=== PATIENT | female | born 1945 | race Caucasian/White ===

== ENCOUNTER → 2017-05-03 | Outpatient (CLI) | payer MEDICARE, OTHER ==
[~2017-05-03] MED LIST: ACET325 PO; ATOR10 PO; ATOR20 PO; Bactrim Ds Tab1 EACH PO; CALCA500CH PO; CALCAVITD PO; CENTRUM SILVER1 EAC2 PO; CEPH500 PO; CHOL10002 PO; CIPR500 PO; CLEARLAX119 GM PO; Caltrate-600 W1 EACH PO; Colace250 MG PO; Coumadin5 MG PO; ENOX60I SC; FURO20 PO; Fruity C250 MG PO; HYDCOR2.5C PR; HYDMETSO BOTHEYES; HYDR1TAB94 PO; Juven1 EACH PO; LAVAP17G PO; LEVO750 PO; LEVOFLOXACIN500 MG PO; Magnesium Citr296 ML PO; Milk Of Ma800 MG/5 M PO; Miralax17 GM PO; OSEL75CA PO; PANT40 PO; PERIDEX15 ML MM; POTA8 PO; Percocet 5-3251 EACH PO; Senna8.6 MG PO; Stool Softener100 MG PO; TRAM50 PO; Tylenol325 MG PO; Vitamin D2000 UNIT PO; [UNRECOGNIZED DRUG - REMARK] INH
[2017-05-03 12:57] LABS: Appearance, Urine Cloudy (Clear); Bilirubin, Urine Neg (Neg); Blood, Urine 5+ (Neg); Color, Urine Yellow (P-Yellow); Glucose Qualitative, Urine Neg (Neg); Ketones, Urine Neg (Neg); Leukocyte Esterase, Urine 3+ (Neg); Nitrite, Urine Neg (Neg); Protein, Urine 1+ (Neg); Specific Gravity, Urine 1.015 (1.003-1.022); Urobilinogen, Urine NORM (Normal)
[2017-05-03 13:18] LABS: Red Blood Cells, Urine 25-50 /hpf (0-2)
[2017-05-03 13:19] LABS: Bacteria Few /hpf; Squamous Epithelial Cells Few /hpf (Few); White Blood Cells, Urine 50-100 /hpf (0-5)
== END | disposition home or self-care (01) ==
LOC: EDSTATUS 11:08 → LAB RH 12:46 → LAB UVN 12:46
PROVIDERS: Internal Medicine Nephrology
DX: N18.2 Chronic kidney disease, stage 2 (mild) (principal); D63.1 Anemia in chronic kidney disease
CPT/HCPCS: 81001; 87077; 87086; 87186

== ENCOUNTER → 2017-05-05 | Outpatient (CLI) | payer MEDICARE, OTHER ==
[2017-05-05 12:51] LABS: Protein, Urine Quantitative 74.6 mg/dL (0.0-11.9)
== END | disposition home or self-care (01) ==
LOC: EDSTATUS 11:13 → LAB RH 12:26
PROVIDERS: Internal Medicine Nephrology
DX: N18.2 Chronic kidney disease, stage 2 (mild) (principal); D63.1 Anemia in chronic kidney disease
CPT/HCPCS: 81050; 82043; 84156

== ENCOUNTER → 2017-05-12 | Outpatient (CLI) | payer MEDICARE, OTHER ==
[2017-05-12 09:08] LABS: Source, Urine Catheter
[2017-05-12 11:15] LABS: Bilirubin, Urine Neg (Neg); Blood, Urine Neg (Neg); Glucose Qualitative, Urine Neg (Neg); Ketones, Urine Neg (Neg); Leukocyte Esterase, Urine 1+ (Neg); Nitrite, Urine Neg (Neg); Protein, Urine Neg (Neg); Specific Gravity, Urine 1.015 (1.003-1.022); Urobilinogen, Urine NORM (Normal)
[2017-05-12 11:38] LABS: Appearance, Urine Hazy (Clear); Color, Urine Yellow (P-Yellow)
[2017-05-12 11:40] LABS: Amorphous Light (0-Heavy); Bacteria Few /hpf; Calcium Oxalate Crystals Few /hpf; Squamous Epithelial Cells Few /hpf (Few)
== END | disposition home or self-care (01) ==
LOC: LAB RH 09:07 → EDSTATUS 11:16
PROVIDERS: Internal Medicine Nephrology
DX: N39.0 Urinary tract infection, site not specified (principal)
CPT/HCPCS: 81001; 87086

== ENCOUNTER 2017-08-17 16:09 | Emergency (ER) | payer MEDICARE, OTHER ==
[~2017-08-17] VITALS: Ht 165.1 cm; Wt 68.0 kg
[2017-08-17 16:38] LABS: BASOPHILS ABSOLUTE AUTO 0.04 K/mm3 (0.00-0.23); BASOPHILS PERCENT AUTO 1 % (0-2); EOSINOPHILS ABSOLUTE AUTO 0.24 K/mm3 (0.00-0.68); EOSINOPHILS PERCENT AUTO 4 % (0-6); Hematocrit 44.3 % (33.0-51.0); Hemoglobin 14.7 g/dL (11.5-16.0); IMMATURE GRAN ABSOLUTE AUTO 0.02 K/mm3 (0.00-0.10); IMMATURE GRAN PERCENT AUTO 0 % (0-1); LYMPHOCYTES ABSOLUTE AUTO 1.66 K/mm3 (0.84-5.20); LYMPHOCYTES PERCENT AUTO 26 % (21-46); MONOCYTES PERCENT AUTO 8 % (4-13); Mean Corpuscular HGB 31.1 pg (26.0-34.0); Mean Corpuscular HGB Conc 33.2 g/dL (31.5-36.5); Mean Corpuscular Volume 94 fL (80-100); Mean Platelet Volume 9.4 fL (9.1-12.4); NEUTROPHILS ABSOLUTE AUTO 3.97 K/mm3 (1.96-9.15); NEUTROPHILS PERCENT AUTO 62 % (41-73); Platelet Count 259 K/mm3 (150-400); RDW Coefficient Variation 14.7 % (11.7-14.2); RDW Standard Deviation 51.4 fL (35.1-46.3); Red Blood Cell Count 4.73 M/mm3 (3.80-5.20); White Blood Cell Count 6.43 K/mm3 (4.00-11.30)
[2017-08-17 16:53] LABS: Alanine Aminotransfer (ALT/SGP 37 U/L (12-78); Albumin/Globulin Ratio 0.7 (0.8-1.8); Alk Phos 104 U/L (50-136); Anion Gap 8 mmol/L (6-16); Aspartate Aminotrans (AST/SGOT 33 U/L (12-37); Bilirubin, Total 0.3 mg/dL (0.1-1.0); Blood Urea Nitrogen 14 mg/dL (8-24); Bun/Creatinine Ratio 19.1 (12.0-20.0); CO2, Blood 29 mmol/L (21-32); Calcium, Blood 8.7 mg/dL (8.5-10.1); Chloride, Blood 107 mmol/L (98-108); Creatinine, Blood 0.73 mg/dL (0.40-1.00); Globulin, Blood 4.4 g/dL (2.2-4.0); Glomerular Filtration Rate >60 (60-); Glucose, Blood 110 mg/dL (70-99); Potassium, Blood 3.8 mmol/L (3.5-5.5); Sodium, Blood 144 mmol/L (136-145); Total Protein, Blood 7.4 g/dL (6.4-8.2)
== END 2017-08-17 18:43 | disposition home or self-care (01) ==
LOC: ER 16:09
DX: R55 Syncope and collapse (principal); Z88.0 Allergy status to penicillin; Z88.8 Allergy status to other drugs, medicaments and biological substances; Z79.899 Other long term (current) drug therapy; I10 Essential (primary) hypertension
CPT/HCPCS: 80053; 85025; 93005; 93010; 99283

== ENCOUNTER → 2017-09-01 | Outpatient (CLI) | payer MEDICARE, OTHER | LOC: LAB SHORT 17:07 → LAB 17:07 | DX: Z48.817 Encounter for surgical aftercare following surgery on the skin and subcutaneous tissue (principal); L08.9 Local infection of the skin and subcutaneous tissue, unspecified | CPT/HCPCS: 87070; 87075; 87147; 87186; 87205 ==

== ENCOUNTER 2018-04-01 20:27 | Emergency (ER) | payer MEDICARE, OTHER ==
[~2018-04-01] VITALS: Ht 165.1 cm; Wt 61.2 kg
[2018-04-01 20:55] LABS: Calcium, Ionized (POC) 1.24 mmol/L (1.10-1.46); Chloride (POC) 103 mmol/L (98-108); Creatinine (POC) 0.7 mg/dL (0.6-1.0); Glucose (ISTAT POC) 117 mg/dL (70-99); Hemoglobin (POC) 15.6 g/dL (12.0-16.0); Potassium (POC) 4.1 mmol/L (3.5-5.5); Sodium (POC) 140 mmol/L (135-148); Total CO2 (POC) 29 mmol/L (21-32)
== END 2018-04-01 22:03 | disposition home or self-care (01) ==
LOC: ER 20:27
PROVIDERS: Emergency Medicine
DX: R55 Syncope and collapse (principal); I10 Essential (primary) hypertension; D64.9 Anemia, unspecified
CPT/HCPCS: 80047; 85014; 93005; 93010; 99284-25

== ENCOUNTER 2019-01-10 15:15 | Inpatient (IN) | payer MEDICARE, OTHER ==
[~2019-01-10] VITALS: Ht 152.4 cm; Wt 45.6 kg
[~2019-01-10 15:15] MED LIST changes: +ARTIFICIAL TEAR15 M2 BOTHEYES; -HYDMETSO BOTHEYES
[2019-01-10] MEDS ORDERED: ASPI325 PO (15:35)
[2019-01-10] MEDS ORDERED: CITA20 PO (15:35)
[2019-01-10] MEDS ORDERED: POTA8 PO (15:36)
[2019-01-10 15:45] LABS: BASOPHILS ABSOLUTE AUTO 0.04 K/mm3 (0.00-0.23); BASOPHILS PERCENT AUTO 0 % (0-2); EOSINOPHILS PERCENT AUTO 1 % (0-6); Hemoglobin 19.9 g/dL (11.5-16.0); IMMATURE GRAN ABSOLUTE AUTO 0.02 K/mm3 (0.00-0.10); IMMATURE GRAN PERCENT AUTO 0 % (0-1); LYMPHOCYTES PERCENT AUTO 33 % (21-46); MONOCYTES ABSOLUTE AUTO 0.87 K/mm3 (0.16-1.47); MONOCYTES PERCENT AUTO 10 % (4-13); Mean Corpuscular HGB Conc 29.7 g/dL (31.5-36.5); Mean Corpuscular Volume 104 fL (80-100); Mean Platelet Volume 11.8 fL (9.1-12.4); NEUTROPHILS ABSOLUTE AUTO 5.07 K/mm3 (1.96-9.15); NEUTROPHILS PERCENT AUTO 56 % (41-73); Platelet Count 171 K/mm3 (150-400); RDW Standard Deviation 58.4 fL (35.1-46.3); Red Blood Cell Count 6.41 M/mm3 (3.80-5.20)
[2019-01-10 15:51] LABS: Hematocrit 66.9 % (33.0-51.0)
[2019-01-10 15:51] LABS: Source, Urine Clean Catch
[2019-01-10 15:55] LABS: Appearance, Urine Hazy (Clear); Bilirubin, Urine Neg (Neg); Blood, Urine 5+ (Neg); Color, Urine Yellow (P-Yellow); Glucose Qualitative, Urine Neg (Neg); Ketones, Urine Neg (Neg); Leukocyte Esterase, Urine 3+ (Neg); Nitrite, Urine Neg (Neg); Protein, Urine 2+ (Neg); Urobilinogen, Urine NORM (Normal)
[2019-01-10 16:07] LABS: Troponin I 0.04 ng/mL (0.000-0.040)
[2019-01-10 16:09] LABS: Albumin, Blood 3.4 g/dL (3.4-5.0); Albumin/Globulin Ratio 0.7 (0.8-1.8); Bilirubin, Total 0.6 mg/dL (0.1-1.0); Bun/Creatinine Ratio 73.2 (12.0-20.0); Calcium, Blood 12.4 mg/dL (8.5-10.1); Creatinine, Blood 1.23 mg/dL (0.40-1.00); Globulin, Blood 5.1 g/dL (2.2-4.0); Potassium, Blood 4.5 mmol/L (3.5-5.5); Total Protein, Blood 8.5 g/dL (6.4-8.2)
[2019-01-10 16:16] LABS: Bacteria Many /hpf; Red Blood Cells, Urine 25-50 /hpf (0-2); Squamous Epithelial Cells Few /hpf (Few)
[2019-01-10 16:17] LABS: Amorphous Light (0-Heavy)
--- NOTE | 2019-01-10 18:19 | NUR ---
PT ARRIVED TO ROOM FROM ER. TRANSFERRED TO BED VIA SLIDER SHEET AND ASSIST X4. PT APEARS TO BE MENTALLY DELAYED OR POSS HX CVA?? SPEECH VERY SLOW AND DIFFICULT TO UNDERSTAND. TEETH PROTRUDING AND SOME ARE MISSING. RT HAND CONTRACTED, BLE'S IMMOBILE. PT HAS DIFFICULTY FOLLOWING COMMANDS. CAN STATE HER NAME AND THAT SHE IS IN [facility] BUT THAT'S IT. SHE ARRIVED WITH NS INFUSING AT 150CC/HR INTO 20G IV IN LAC. PT DOES NOT KEEP ARM STRAIGHT AN IV OCCLUDES OFTEN. MEDS GIVEN ORDERED. PT ASKED FOR "BLUE" AND MOTIONED THAT IT WAS SOMETHING THAT WENT TO HER FACE. SHE WAS GIVEN AN EMESIS BAG AND ZOFRAN. ADMISSION ASSESSMENT COMPLETE. WILL NEED TO REVIEW [facility] RECORDS FOR HISTORY PT IS A POOR COMMUNICATOR AND COGNITIVELY IMPAIRED. BED ALARM IN PLACE. TV ON GESTURED. PT IN [facility] FOR NURSING OBSV. WILL CONT TO MONITOR, CHART ANY CHANGES AND REPORT TO HAND SPRING REPAIRER RN.
[2019-01-10 21:37] LABS: Bun/Creatinine Ratio 71.5 (12.0-20.0); Calcium, Blood 11.5 mg/dL (8.5-10.1); Creatinine, Blood 1.23 mg/dL (0.40-1.00); Potassium, Blood 3.4 mmol/L (3.5-5.5)
[2019-01-11 03:48] LABS: BASOPHILS ABSOLUTE AUTO 0.02 K/mm3 (0.00-0.23); BASOPHILS PERCENT AUTO 0 % (0-2); EOSINOPHILS ABSOLUTE AUTO 0.09 K/mm3 (0.00-0.68); EOSINOPHILS PERCENT AUTO 1 % (0-6); IMMATURE GRAN ABSOLUTE AUTO 0.03 K/mm3 (0.00-0.10); IMMATURE GRAN PERCENT AUTO 0 % (0-1); LYMPHOCYTES ABSOLUTE AUTO 2.22 K/mm3 (0.84-5.20); LYMPHOCYTES PERCENT AUTO 24 % (21-46); MONOCYTES ABSOLUTE AUTO 0.96 K/mm3 (0.16-1.47); MONOCYTES PERCENT AUTO 10 % (4-13); Mean Corpuscular HGB 30.5 pg (26.0-34.0); Mean Corpuscular HGB Conc 28.4 g/dL (31.5-36.5); Mean Platelet Volume 11.6 fL (9.1-12.4); NEUTROPHILS ABSOLUTE AUTO 5.89 K/mm3 (1.96-9.15); NEUTROPHILS PERCENT AUTO 64 % (41-73); Platelet Count 125 K/mm3 (150-400); RDW Coefficient Variation 14.7 % (11.7-14.2); RDW Standard Deviation 59.5 fL (35.1-46.3); Red Blood Cell Count 5.24 M/mm3 (3.80-5.20); White Blood Cell Count 9.21 K/mm3 (4.00-11.30)
[2019-01-11 03:51] LABS: Hematocrit 56.4 % (33.0-51.0); Mean Corpuscular Volume 108 fL (80-100)
[2019-01-11 04:35] LABS: Albumin, Blood 2.6 g/dL (3.4-5.0); Albumin/Globulin Ratio 0.7 (0.8-1.8); Bilirubin, Total 0.5 mg/dL (0.1-1.0); Bun/Creatinine Ratio 70.3 (12.0-20.0); Calcium, Blood 9.8 mg/dL (8.5-10.1); Creatinine, Blood 1.18 mg/dL (0.40-1.00); Globulin, Blood 3.6 g/dL (2.2-4.0); Potassium, Blood 4.6 mmol/L (3.5-5.5)
[2019-01-11 04:36] LABS: Total Protein, Blood 6.2 g/dL (6.4-8.2)
--- NOTE | 2019-01-11 05:34 | NUR ---
PROVIDER CONTACTED PT WITH CRITICALLY HIGH SODIUM THIS AM OF 174. DR DIAZ CONTACTED AND IS LOOKING AT ALL LAB RESULTS AND WILL INPUT ORDERS IF NECESSARY.
--- NOTE | 2019-01-11 06:54 | NUR ---
SHIFT SUMMARY PT HAS REMAINED ORIENTED TO SELF, TOWN AND AND SURROUNDINGS THROUGHOUT THE NIGHT. PT IS DISORIENTED TO CURRENT DATE/TIME. PT REMAINS VERY SLOW TO RESPOND, BUT IS ABLE TO ANSWER QUESTIONS AND MAKE NEEDS KNOWN. VSS. HAS BEEN VERY COOPERATIVE WITH CARE. PT REMAINS INCONTINENT OF URINE THROUGHOUT THE NIGHT, ATTENDS IN PLACE. O2 SATS >90% ON RA. CARDIAC RHTYHM REMAINS IN SINUS WITH A RATE IN THE 90s. POWERGLIDE ATTEMPTED X2 WITHOUT SUCCESS. D 5% FLUIDS RUNNING @ 75 ML/HR. NO OTHER CHANGES NOTED FROM INITIAL ASSESSMENT. WILL CONTINUE TO MONITOR AND REPORT TO ONCOMING SHIFT RN. BED IN LOW POSITION, CALL LIGHT IN REACH. BED ALARM SET FOR SAFETY.
[2019-01-11 07:56] LABS: Calcium, Blood 9.7 mg/dL (8.5-10.1); Creatinine, Blood 1.25 mg/dL (0.40-1.00)
--- NOTE | 2019-01-11 08:30 | NUR ---
ASSUMED CARE OF PATIENT AT 0700, WITH REPORT FROM NURSE BRUNA. PATIENT IS LYING IN BED EYES CLOSED, ROUSABLE BY VOICE, LETHARGIC TO RESPOND WITH APPARENT DEVELOPMENTAL DELAY, IS REPORTED TO BE HER BASELINE. PATIENT IS ORIENTED TO SELF AND TOWN, BUT NOT TIME NOR EXACT PLACE. ORIENTING PATIENT TO CALL LIGHT IS PRACTICAL AT EACH INTERVENTION. PATIENT C/O PAIN TO RIGHT EYE, WHICH IS SOOTHED BY COOL DAMP WASHCLOTH, OTHERWISE NO ISSUES OTHER THAN VERBAL WORDLESS SOUND WITH SC MEDS, AND WITH PRESSURE CUFF INFLATED. PATIENT IS ABLE TO MAKE HER WISHES KNOWN, AND ANSWERS SIMPLE QUESTIONS ONE BY ONE GIVEN ENOUGH TIME. WILL CONTINUE TO MONITOR. BED LOCKED AND LOW, BED ALARM ON, CALL LIGHT W/IN REACH.
[2019-01-11 12:11] LABS: Bun/Creatinine Ratio 65.3 (12.0-20.0); Calcium, Blood 9.2 mg/dL (8.5-10.1); Creatinine, Blood 1.21 mg/dL (0.40-1.00)
[2019-01-11 18:40] LABS: Bun/Creatinine Ratio 64.1 (12.0-20.0); Calcium, Blood 8.5 mg/dL (8.5-10.1); Creatinine, Blood 1.03 mg/dL (0.40-1.00); Potassium, Blood 3.4 mmol/L (3.5-5.5)
--- NOTE | 2019-01-11 19:18 | NUR ---
SPOKE WITH PHYSICIAN DR. PALMER ABOUT NA LEVEL OF 159. NEW ORDERS TO CHANGE RATE ON D5 INFUSION TO 100MLS/H.
--- NOTE | 2019-01-11 19:26 | NUR ---
SHIFT SUMMARY TREATED AND MEDICATED PATIENT PER EMAR ORDER AND UNIT PROTOCOL, PATIENT SLEPT MOST OF THE DAY, APPEARING MORE COGNIZANT AND ALERT AT THE END OF THE SHIFT THAN AT THE BEGINNING. PATIENT WAS RECEPTIVE TO RE-ORIENTATION TO UNIT AND LOCATION, AND ACCEPTING OF ALL INTERVENTIONS WELL HER NPO ORDER, ALTHOUGH SHE ASKED FOR SOMETHING TO EAT A NUMBER OF TIMES. VSS STABLE THROUGHOUT THE SHIFT, PT ABOVE 92% O2 SATURATION ON ROOM AIR. CARE AND REPORT GIVEN TO ONCOMING SHIFT AT 1900, PATIENT AWAKE IN BED, BED LOCKED AND LOW, CALL LIGHT W/IN REACH.
[2019-01-12 00:17] LABS: Anion Gap 4 mmol/L (6-16); Blood Urea Nitrogen 57 mg/dL (8-24); Bun/Creatinine Ratio 62.1 (12.0-20.0); CO2, Blood 35 mmol/L (21-32); Calcium, Blood 8.1 mg/dL (8.5-10.1); Chloride, Blood 120 mmol/L (98-108); Creatinine, Blood 0.92 mg/dL (0.40-1.00); Glomerular Filtration Rate >60 (60-); Glucose, Blood 122 mg/dL (70-99); Potassium, Blood 3.2 mmol/L (3.5-5.5); Sodium, Blood 159 mmol/L (136-145)
[2019-01-12 06:21] LABS: Anion Gap 2 mmol/L (6-16); Blood Urea Nitrogen 45 mg/dL (8-24); Bun/Creatinine Ratio 56.2 (12.0-20.0); CO2, Blood 34 mmol/L (21-32); Calcium, Blood 8.1 mg/dL (8.5-10.1); Chloride, Blood 118 mmol/L (98-108); Glomerular Filtration Rate >60 (60-); Glucose, Blood 124 mg/dL (70-99); Potassium, Blood 3.1 mmol/L (3.5-5.5); Sodium, Blood 154 mmol/L (136-145)
--- NOTE | 2019-01-12 07:28 | NUR ---
SHIFT SUMMARY PT HAS REMAINED AOX3 THROUGHOUT SHIFT. ORIENTED TO SELF, SURROUNDINGS, AND FOLLOWING DIRECTIONS. DISORIENTED TO CURRENT DATE. VSS. PLEASANT AND COOPERATIVE WITH CARE. PT HAS SLEPT THROUGHOUT MUCH OF THE NIGHT. REQUIRES MOTIVATION TO FULLY WAKE UP AND PARTICIPATE IN CARE AND ASSESSMENT, BUT IS ABLE TO DO SO. D5% CONTINUES TO INFUSE @ 100 ML/HR WITH IMPROVING SODIUM LEVELS. PT TURNED Q2 AND ATTEMPTED TO ASSIST WITH TURNS OCCASINALLY THROUGHOUT THE NIGHT. O2 SATS HAVE REMAINED >90% ON RA. NO OTHER CHANGES NOTED FROM INITIAL ASSESSMENT. WILL CONTINUE TO MONITOR AND REPORT TO ONCOMING SHIFT RN. BED IN LOW POSITION, CALL LIGHT IN REACH. BED ALARM SET FOR SAFETY.
[2019-01-12 12:25] LABS: Anion Gap 4 mmol/L (6-16); Blood Urea Nitrogen 38 mg/dL (8-24); Bun/Creatinine Ratio 52.1 (12.0-20.0); CO2, Blood 32 mmol/L (21-32); Calcium, Blood 7.5 mg/dL (8.5-10.1); Chloride, Blood 115 mmol/L (98-108); Creatinine, Blood 0.73 mg/dL (0.40-1.00); Glomerular Filtration Rate >60 (60-); Glucose, Blood 142 mg/dL (70-99); Sodium, Blood 151 mmol/L (136-145)
--- NOTE | 2019-01-12 16:34 | NUR ---
UPDATE PT ALERT TO SELF, FOLLOWING DIRECTIONS, AND PLACE. PT SLOW TO RESPOND. VS STABLE. O2 SATS REMAIN ABOVE 90% ON RA. PT DENIES ANY PAIN. PT INCONTINENT OF BOWEL AND BLADDER. PT REPOSITIONED Q2H. D5 INFUSING PER ORDERS ALONG WITH KCL. REPORT CALLED TO MEDICAL FLOOR ALFA THAYER. PT TAKEN UP BY BED.
--- NOTE | 2019-01-12 19:50 | NUR ---
SHIFT SUMMARY- PT ALERT AND ORIENTED, BEDBOUND AT BASELINE, PT HAS CONTRACTURES ON THE RIGHT. DENIES NEED FOR PAIN MEDICATION. PT IS INCONTINENT OF STOOL AND URINE. PT HAS IV POTASSIUM RUNNING IN THE PG ABX STARTED AT SHIFT CHANGE INTO THE SECOND LINE. PT BP WAS HYPOTENSIVE ON ARRIVAL TO THE UNIT. PT IS ASYMTOMATIC OF IT AT THIS TIME. BEDSIDE REPORT COMPLETED WITH NIGHT ALFA HAMILTON.
[2019-01-13 05:07] LABS: BASOPHILS ABSOLUTE AUTO 0.01 K/mm3 (0.00-0.23); BASOPHILS PERCENT AUTO 0 % (0-2); EOSINOPHILS ABSOLUTE AUTO 0.17 K/mm3 (0.00-0.68); EOSINOPHILS PERCENT AUTO 3 % (0-6); Hematocrit 34.7 % (33.0-51.0); Hemoglobin 10.6 g/dL (11.5-16.0); IMMATURE GRAN ABSOLUTE AUTO 0.03 K/mm3 (0.00-0.10); IMMATURE GRAN PERCENT AUTO 1 % (0-1); LYMPHOCYTES ABSOLUTE AUTO 2.35 K/mm3 (0.84-5.20); LYMPHOCYTES PERCENT AUTO 38 % (21-46); MONOCYTES ABSOLUTE AUTO 0.44 K/mm3 (0.16-1.47); MONOCYTES PERCENT AUTO 7 % (4-13); Mean Corpuscular HGB 30.8 pg (26.0-34.0); Mean Corpuscular HGB Conc 30.5 g/dL (31.5-36.5); Mean Platelet Volume 12.2 fL (9.1-12.4); NEUTROPHILS ABSOLUTE AUTO 3.22 K/mm3 (1.96-9.15); NEUTROPHILS PERCENT AUTO 52 % (41-73); Platelet Count 78 K/mm3 (150-400); RDW Coefficient Variation 13.2 % (11.7-14.2); RDW Standard Deviation 49.1 fL (35.1-46.3); Red Blood Cell Count 3.44 M/mm3 (3.80-5.20); White Blood Cell Count 6.22 K/mm3 (4.00-11.30)
[2019-01-13 05:22] LABS: Mean Corpuscular Volume 101 fL (80-100)
[2019-01-13 05:30] LABS: Anion Gap 4 mmol/L (6-16); Blood Urea Nitrogen 19 mg/dL (8-24); Bun/Creatinine Ratio 30.4 (12.0-20.0); CO2, Blood 28 mmol/L (21-32); Calcium, Blood 7.3 mg/dL (8.5-10.1); Chloride, Blood 116 mmol/L (98-108); Creatinine, Blood 0.63 mg/dL (0.40-1.00); Glomerular Filtration Rate >60 (60-); Glucose, Blood 144 mg/dL (70-99); Potassium, Blood 3.4 mmol/L (3.5-5.5); Sodium, Blood 148 mmol/L (136-145)
--- NOTE | 2019-01-13 06:36 | NUR ---
PT 73 years old admitted 01/10/19 with hypernatremia and continues on D5 at150 ml hr via lt upper arm powerglide. PT also has IV which was used for merrum to treat ESBL UTI. PT incontinent of urine multiple times. Aspiration risk on pureed diet nectar thick liquids per spoon. no oral intake this shift. PT able to verbalize but has difficlty with memory and has rt UE contractured hand weak rt le
--- NOTE | 2019-01-13 16:00 | NUR ---
CALLED DR PALMER- SPOKE ABOUT THE PT SWOLLEN BRUISED LEFT ARM, VAS STUDY NEGATIVE FOR DVT HOWEVER SWELLING AND BRUISING HAVE GOTTEN WORSE. ALSO PT MOST RECENT BP WAS 80/44. PT TIRED BUT OTHERWISE ASYMPTOMATIC. BP BEING DONE ON THE LEFT LEG D/T EDEMA ON THE RIGHT ARM AND IV ACCESS IN THE LEFT. NO NEW ORDERS AT THIS TIME WILL CTM AND RECHECK VITALS IN APPROXIMATELY 1 HOUR.
--- NOTE | 2019-01-13 18:49 | NUR ---
SHIFT SUMMARY- OTHER THAN PREVIOUSLY NOTED ISSUES PT HAS HAD NO ACUTE CHANGES. IVF DC'D. PT LAST SBP WAS 115.
--- NOTE | 2019-01-14 05:28 | NUR ---
PT continues the recieve IV abx to treat ESB> Saline locked IV fluids per MD. BP variable hypotensive at times. Zero oral intake this shift very high aspiration risk and does not want to sit up for oral. Denies pain or acute distress. PT has rt upper arm doppler study negative for DVT. RT UE has 3 attempts at PICC line placement. LT UE power glide difficult to draw AM labs but after multiple flushes and pressure to cannula did get am lab draw.
[2019-01-14 05:49] LABS: BASOPHILS ABSOLUTE AUTO 0.01 K/mm3 (0.00-0.23); BASOPHILS PERCENT AUTO 0 % (0-2); EOSINOPHILS ABSOLUTE AUTO 0.17 K/mm3 (0.00-0.68); EOSINOPHILS PERCENT AUTO 4 % (0-6); Hematocrit 33.1 % (33.0-51.0); Hemoglobin 10.4 g/dL (11.5-16.0); IMMATURE GRAN ABSOLUTE AUTO 0.04 K/mm3 (0.00-0.10); IMMATURE GRAN PERCENT AUTO 1 % (0-1); LYMPHOCYTES ABSOLUTE AUTO 1.19 K/mm3 (0.84-5.20); LYMPHOCYTES PERCENT AUTO 26 % (21-46); MONOCYTES ABSOLUTE AUTO 0.37 K/mm3 (0.16-1.47); MONOCYTES PERCENT AUTO 8 % (4-13); Mean Corpuscular HGB 31.5 pg (26.0-34.0); Mean Corpuscular HGB Conc 31.4 g/dL (31.5-36.5); Mean Corpuscular Volume 100 fL (80-100); Mean Platelet Volume 12.4 fL (9.1-12.4); NEUTROPHILS ABSOLUTE AUTO 2.88 K/mm3 (1.96-9.15); NEUTROPHILS PERCENT AUTO 62 % (41-73); Platelet Count 76 K/mm3 (150-400); RDW Coefficient Variation 13.2 % (11.7-14.2); RDW Standard Deviation 49.1 fL (35.1-46.3); White Blood Cell Count 4.66 K/mm3 (4.00-11.30)
[2019-01-14 06:11] LABS: Anion Gap 4 mmol/L (6-16); Blood Urea Nitrogen 14 mg/dL (8-24); Bun/Creatinine Ratio 19.4 (12.0-20.0); CO2, Blood 25 mmol/L (21-32); Calcium, Blood 7.4 mg/dL (8.5-10.1); Chloride, Blood 119 mmol/L (98-108); Creatinine, Blood 0.72 mg/dL (0.40-1.00); Glomerular Filtration Rate >60 (60-); Glucose, Blood 87 mg/dL (70-99); Potassium, Blood 3.7 mmol/L (3.5-5.5); Sodium, Blood 148 mmol/L (136-145)
--- NOTE | 2019-01-14 19:20 | NUR ---
PATIENT ABLE TO ANSWER QUESTIONS APPROPRIATELY. VSS, ON RA. SPEECH GARBLED AND DIFFICULT TO UNDERSTAND. BEDBOUND AT BASELINE, Q2 TURNS. MERREM IN ORDERED TO TREAT UTI. 20G IV TO L AC AND POWERGLIDE TO L UPPER ARM. PLAN IS TO D/C BACK TO [facility] ONCE STABLE. PATIENT IS A FEEDER, PUREE DIET WITH NECTAR THICK LIQUIDS. INCONTINENT OF BOWEL/BLADDER.
--- NOTE | 2019-01-15 04:24 | NUR ---
Shift Summary Patient slept well overnight. Assisted to reposition q2h and changed soiled briefs. Provided oral care with repositioning. Encouraged nectar-thick po fluids.
--- NOTE | 2019-01-15 18:30 | NUR ---
DISCHARGE PATIENT DISCHARGED BACK TO [facility]. PATIENT TRANSFERED VIA STRETCHER. IV'S REMOVED WITHOUT DIFFICULTY. BELONGINGS WITH PATIENT. REPORT CALLED TO [facility] NURSE. PACKET WITH DOCK BUILDER.
== END 2019-01-15 18:15 | DRG 641 ==
LOC: ER 15:15 → ICUW 16:44 → PCU 17:14 → MEDS 01-12 16:22
PROVIDERS: Emergency Medicine; Internal Medicine; ADMIT Hospitalist
DX: E87.0 Hyperosmolality and hypernatremia (principal); N17.9 Acute kidney failure, unspecified; N39.0 Urinary tract infection, site not specified; M41.9 Scoliosis, unspecified; I10 Essential (primary) hypertension; M81.0 Age-related osteoporosis without current pathological fracture; Z79.82 Long term (current) use of aspirin; Z74.01 Bed confinement status; I89.0 Lymphedema, not elsewhere classified; E86.0 Dehydration; D64.9 Anemia, unspecified
CPT/HCPCS: 36415; 71046; 80048; 80053; 81001; 84484; 85025; 87077; 87081; 87086; 87186; 92526; 92610; 93005; 93010; 93971; 99285-25; J0696; J1644; J1650; J2185; J2405; J3480; J7030; J7050; J7060; J7070; P9612

== ENCOUNTER → 2019-01-29 | Outpatient (CLI) | payer MEDICARE, OTHER ==
[~2019-01-29] MED LIST changes: +ASPI325 PO; +CITA20 PO
[2019-01-29 14:15] LABS: Stool Occult Bld Immuno 1 Negative (NEGATIVE)
== END | disposition home or self-care (01) ==
LOC: LAB 08:36 → LAB SHORT 08:36
PROVIDERS: Nurse Practitioner Family
DX: Z12.11 Encounter for screening for malignant neoplasm of colon (principal); Z12.12 Encounter for screening for malignant neoplasm of rectum
CPT/HCPCS: G0328

== ENCOUNTER → 2019-03-27 | Outpatient (CLI) | payer MEDICARE, OTHER ==
[2019-03-27 11:44] LABS: BASOPHILS ABSOLUTE AUTO 0.05 K/mm3 (0.00-0.23); BASOPHILS PERCENT AUTO 0 % (0-2); EOSINOPHILS ABSOLUTE AUTO 0.03 K/mm3 (0.00-0.68); EOSINOPHILS PERCENT AUTO 0 % (0-6); Hematocrit 44.4 % (33.0-51.0); IMMATURE GRAN ABSOLUTE AUTO 0.07 K/mm3 (0.00-0.10); IMMATURE GRAN PERCENT AUTO 1 % (0-1); LYMPHOCYTES ABSOLUTE AUTO 1.02 K/mm3 (0.84-5.20); LYMPHOCYTES PERCENT AUTO 7 % (21-46); MONOCYTES ABSOLUTE AUTO 0.94 K/mm3 (0.16-1.47); MONOCYTES PERCENT AUTO 6 % (4-13); Mean Corpuscular HGB 30.7 pg (26.0-34.0); Mean Corpuscular HGB Conc 31.5 g/dL (31.5-36.5); Mean Platelet Volume 9.6 fL (9.1-12.4); NEUTROPHILS ABSOLUTE AUTO 13.03 K/mm3 (1.96-9.15); NEUTROPHILS PERCENT AUTO 86 % (41-73); Platelet Count 357 K/mm3 (150-400); RDW Coefficient Variation 14.6 % (11.7-14.2); RDW Standard Deviation 52.9 fL (35.1-46.3); Red Blood Cell Count 4.56 M/mm3 (3.80-5.20); White Blood Cell Count 15.14 K/mm3 (4.00-11.30)
[2019-03-27 12:06] LABS: Albumin, Blood 2.8 g/dL (3.4-5.0); Albumin/Globulin Ratio 0.6 (0.8-1.8); Bilirubin, Total 0.5 mg/dL (0.1-1.0); Bun/Creatinine Ratio 21.4 (12.0-20.0); Calcium, Blood 8.9 mg/dL (8.5-10.1); Creatinine, Blood 1.17 mg/dL (0.40-1.00); Total Protein, Blood 7.8 g/dL (6.4-8.2)
[2019-03-27 12:07] LABS: Mean Corpuscular Volume 97 fL (80-100)
== END | disposition home or self-care (01) ==
LOC: EDSTATUS 11:05 → LAB RH 11:37
PROVIDERS: Family Medicine
DX: E87.8 Other disorders of electrolyte and fluid balance, not elsewhere classified (principal)
CPT/HCPCS: 80053; 85025

== ENCOUNTER → 2019-03-31 | Outpatient (CLI) | payer MEDICARE, OTHER ==
[2019-03-31 07:20] LABS: Hematocrit 34.7 % (33.0-51.0); Hemoglobin 10.8 g/dL (11.5-16.0); Mean Corpuscular HGB 30.3 pg (26.0-34.0); Mean Corpuscular HGB Conc 31.1 g/dL (31.5-36.5); Mean Corpuscular Volume 97 fL (80-100); Mean Platelet Volume 9.8 fL (9.1-12.4); Platelet Count 254 K/mm3 (150-400); RDW Coefficient Variation 14.2 % (11.7-14.2); RDW Standard Deviation 50.4 fL (35.1-46.3); Red Blood Cell Count 3.57 M/mm3 (3.80-5.20); White Blood Cell Count 6.33 K/mm3 (4.00-11.30)
[2019-03-31 07:50] LABS: Alanine Aminotransfer (ALT/SGP 11 U/L (12-78); Albumin/Globulin Ratio 0.5 (0.8-1.8); Alk Phos 67 U/L (50-136); Anion Gap 6 mmol/L (6-16); Aspartate Aminotrans (AST/SGOT 12 U/L (12-37); Bilirubin, Total 0.2 mg/dL (0.1-1.0); Blood Urea Nitrogen 14 mg/dL (8-24); Bun/Creatinine Ratio 26.5 (12.0-20.0); CO2, Blood 30 mmol/L (21-32); Calcium, Blood 8.8 mg/dL (8.5-10.1); Chloride, Blood 107 mmol/L (98-108); Creatinine, Blood 0.53 mg/dL (0.40-1.00); Glomerular Filtration Rate >60 (60-); Glucose, Blood 86 mg/dL (70-99); Potassium, Blood 3.9 mmol/L (3.5-5.5); Sodium, Blood 143 mmol/L (136-145)
== END | disposition home or self-care (01) ==
LOC: LAB RH 07:12 → EDSTATUS 11:06
PROVIDERS: Nurse Practitioner Gerontology
DX: E87.8 Other disorders of electrolyte and fluid balance, not elsewhere classified (principal)
CPT/HCPCS: 80053; 85027

== ENCOUNTER → 2019-04-04 | Outpatient (CLI) | payer MEDICARE, OTHER ==
[2019-04-04 13:05] LABS: Albumin, Blood 2.3 g/dL (3.4-5.0); Anion Gap 1 mmol/L (6-16); Blood Urea Nitrogen 16 mg/dL (8-24); Bun/Creatinine Ratio 38.1 (12.0-20.0); CO2, Blood 29 mmol/L (21-32); Calcium, Blood 8.2 mg/dL (8.5-10.1); Chloride, Blood 105 mmol/L (98-108); Creatinine, Blood 0.42 mg/dL (0.40-1.00); Glomerular Filtration Rate >60 (60-); Glucose, Blood 87 mg/dL (70-99); Phosphorus, Blood 2.6 mg/dL (2.5-4.9); Potassium, Blood 4.2 mmol/L (3.5-5.5); Sodium, Blood 135 mmol/L (136-145)
== END | disposition home or self-care (01) ==
LOC: LAB RH 08:04 → EDSTATUS 11:07
PROVIDERS: Internal Medicine Nephrology
DX: N18.3 Chronic kidney disease, stage 3 (moderate) (principal); D63.1 Anemia in chronic kidney disease; N25.81 Secondary hyperparathyroidism of renal origin; E55.9 Vitamin D deficiency, unspecified
CPT/HCPCS: 36415; 80069; 82306; 83970; 85018

== ENCOUNTER → 2019-06-18 | Outpatient (CLI) | payer MEDICARE, OTHER ==
[2019-06-18 11:58] LABS: Anion Gap 4 mmol/L (6-16); Blood Urea Nitrogen 17 mg/dL (8-24); Bun/Creatinine Ratio 23.7 (12.0-20.0); CO2, Blood 34 mmol/L (21-32); Calcium, Blood 9.5 mg/dL (8.5-10.1); Chloride, Blood 106 mmol/L (98-108); Creatinine, Blood 0.72 mg/dL (0.40-1.00); Glomerular Filtration Rate >60 (60-); Glucose, Blood 93 mg/dL (70-99); Potassium, Blood 4.2 mmol/L (3.5-5.5); Sodium, Blood 144 mmol/L (136-145)
== END | disposition home or self-care (01) ==
LOC: EDSTATUS 09:56 → LAB RH 11:46
PROVIDERS: Family Medicine
DX: N18.2 Chronic kidney disease, stage 2 (mild) (principal); D63.1 Anemia in chronic kidney disease
CPT/HCPCS: 80048

== ENCOUNTER → 2019-06-24 | Outpatient (CLI) | payer MEDICARE, OTHER ==
[~2019-06-24] MED LIST changes: +MIRALAX17 GM PO
[2019-06-24 12:19] LABS: BASOPHILS ABSOLUTE AUTO 0.06 K/mm3 (0.00-0.23); BASOPHILS PERCENT AUTO 1 % (0-2); EOSINOPHILS ABSOLUTE AUTO 0.04 K/mm3 (0.00-0.68); EOSINOPHILS PERCENT AUTO 0 % (0-6); IMMATURE GRAN ABSOLUTE AUTO 0.05 K/mm3 (0.00-0.10); IMMATURE GRAN PERCENT AUTO 0 % (0-1); LYMPHOCYTES ABSOLUTE AUTO 1.11 K/mm3 (0.84-5.20); LYMPHOCYTES PERCENT AUTO 9 % (21-46); MONOCYTES ABSOLUTE AUTO 1.21 K/mm3 (0.16-1.47); MONOCYTES PERCENT AUTO 10 % (4-13); Mean Corpuscular HGB 29.9 pg (26.0-34.0); Mean Corpuscular HGB Conc 30.8 g/dL (31.5-36.5); Mean Corpuscular Volume 97 fL (80-100); Mean Platelet Volume 10.1 fL (9.1-12.4); NEUTROPHILS ABSOLUTE AUTO 9.31 K/mm3 (1.96-9.15); NEUTROPHILS PERCENT AUTO 79 % (41-73); Platelet Count 270 K/mm3 (150-400); RDW Coefficient Variation 16.8 % (11.7-14.2); RDW Standard Deviation 60.8 fL (35.1-46.3); Red Blood Cell Count 4.02 M/mm3 (3.80-5.20); White Blood Cell Count 11.78 K/mm3 (4.00-11.30)
== END | disposition home or self-care (01) ==
LOC: EDSTATUS 11:39 → LAB RH 12:11
PROVIDERS: Family Medicine
DX: N18.2 Chronic kidney disease, stage 2 (mild) (principal); I82.409 Acute embolism and thrombosis of unspecified deep veins of unspecified lower extremity
CPT/HCPCS: 85025

== ENCOUNTER 2019-06-25 23:21 | Emergency (ER) | payer MEDICARE, OTHER ==
[~2019-06-25] VITALS: Ht 152.4 cm; Wt 59.0 kg
[~2019-06-25 23:21] MED LIST changes: -MIRALAX17 GM PO
[2019-06-26 00:47] LABS: BASOPHILS ABSOLUTE AUTO 0.11 K/mm3 (0.00-0.23); BASOPHILS PERCENT AUTO 0 % (0-2); Hematocrit 37.8 % (33.0-51.0); Hemoglobin 11.5 g/dL (11.5-16.0); LYMPHOCYTES ABSOLUTE AUTO 1.03 K/mm3 (0.84-5.20); LYMPHOCYTES PERCENT AUTO 4 % (21-46); MONOCYTES ABSOLUTE AUTO 1.13 K/mm3 (0.16-1.47); MONOCYTES PERCENT AUTO 4 % (4-13); Mean Corpuscular HGB 29.9 pg (26.0-34.0); Mean Corpuscular HGB Conc 30.4 g/dL (31.5-36.5); Mean Corpuscular Volume 98 fL (80-100); Mean Platelet Volume 9.9 fL (9.1-12.4); Platelet Count 203 K/mm3 (150-400); RDW Coefficient Variation 17.5 % (11.7-14.2); RDW Standard Deviation 63.7 fL (35.1-46.3); Red Blood Cell Count 3.85 M/mm3 (3.80-5.20); White Blood Cell Count 26.58 K/mm3 (4.00-11.30)
[2019-06-26 00:48] LABS: EOSINOPHILS PERCENT AUTO 0 % (0-6); IMMATURE GRAN ABSOLUTE AUTO 0.76 K/mm3 (0.00-0.10); IMMATURE GRAN PERCENT AUTO 3 % (0-1); NEUTROPHILS ABSOLUTE AUTO 23.55 K/mm3 (1.96-9.15); NEUTROPHILS PERCENT AUTO 89 % (41-73)
[2019-06-26 01:04] LABS: Albumin, Blood 1.8 g/dL (3.4-5.0); Albumin/Globulin Ratio 0.4 (0.8-1.8); Bilirubin, Total 0.3 mg/dL (0.1-1.0); Bun/Creatinine Ratio 18.2 (12.0-20.0); Calcium, Blood 8.9 mg/dL (8.5-10.1); Creatinine, Blood 1.98 mg/dL (0.40-1.00); Globulin, Blood 4.8 g/dL (2.2-4.0); Potassium, Blood 4.2 mmol/L (3.5-5.5); Total Protein, Blood 6.6 g/dL (6.4-8.2)
[2019-06-26 01:05] LABS: BAND PERCENT MAN 29 % (0-8); BASOPHILS PERCENT MAN 0 % (0-2); EOSINOPHILS PERCENT MAN 0 % (0-6); LYMPHOCYTES ABSOLUTE MAN 1.06 K/mm3 (0.84-5.20); LYMPHOCYTES PERCENT MAN 4 % (21-46); METAMYELOCYTE ABSOLUTE MAN 4.25 K/mm3 (0.00-0.00); METAMYELOCYTE PERCENT MAN 16 % (0-0); MONOCYTES ABSOLUTE MAN 0.53 K/mm3 (0.16-1.47); MONOCYTES PERCENT MAN 2 % (4-13); NEUTROPHILS ABSOLUTE MAN 20.73 K/mm3 (1.96-9.15); SEG NEUTROPHILS PERCENT MAN 49 % (41-73); TOTAL CELLS COUNTED 100
[2019-06-26] MEDS ORDERED: MIRALAX17 GM PO (02:59)
[2019-06-26 03:18] LABS: Adenovirus F 40/41 Not Detected (NOT DETECT); Astrovirus Not Detected (NOT DETECT); Campylobacter Sp Not Detected (NOT DETECT); Cryptosporidium Not Detected (NOT DETECT); Cyclospora Cayetanensis Not Detected (NOT DETECT); E. Coli O157 Not Detected (NOT DETECT); Entamoeba Histolytica Not Detected (NOT DETECT); Enteroaggregative E. coli-EAEC Not Detected (NOT DETECT); Enteropathogenic E. coli-EPEC Not Detected (NOT DETECT); Enterotoxigenic E. coli-ETEC Not Detected (NOT DETECT); Giardia Lamblia Not Detected (NOT DETECT); Norovirus GI/GII Not Detected (NOT DETECT); Plesiomonas Shigelloides Not Detected (NOT DETECT); Rotavirus A Not Detected (NOT DETECT); Salmonella Sp Not Detected (NOT DETECT); Sapovirus Not Detected (NOT DETECT); Shiga Toxin-prod E. coli-STEC Not Detected (NOT DETECT); Shigella/Enteroin E. coli-EIEC Not Detected (NOT DETECT); Vibrio Cholerae Not Detected (NOT DETECT); Vibrio Sp Not Detected (NOT DETECT); Yersinia Enterocolitica Not Detected (NOT DETECT)
== END 2019-06-26 05:02 | disposition short-term general hospital (02) ==
LOC: ER 23:21 → MEDS 06-26 03:17 → ER 06-26 03:17
PROVIDERS: Emergency Medicine
DX: A41.9 Sepsis, unspecified organism (principal); N13.2 Hydronephrosis with renal and ureteral calculous obstruction; I10 Essential (primary) hypertension; Z88.0 Allergy status to penicillin; Z88.6 Allergy status to analgesic agent; Z79.899 Other long term (current) drug therapy; Z79.82 Long term (current) use of aspirin
CPT/HCPCS: 0097U; 36415; 74176; 80053; 83605; 85025; 93005; 93010; 96361; 96365; 96367; 99285; J0696; J2185; J7030

== ENCOUNTER → 2019-06-25 | Outpatient (CLI) | payer MEDICARE, OTHER ==
[2019-06-25 13:10] LABS: Albumin, Blood 2.1 g/dL (3.4-5.0); Albumin/Globulin Ratio 0.4 (0.8-1.8); Bilirubin, Total 0.6 mg/dL (0.1-1.0); Bun/Creatinine Ratio 13.9 (12.0-20.0); Calcium, Blood 9.5 mg/dL (8.5-10.1); Creatinine, Blood 2.16 mg/dL (0.40-1.00); Potassium, Blood 3.7 mmol/L (3.5-5.5); Total Protein, Blood 7.1 g/dL (6.4-8.2)
== END | disposition home or self-care (01) ==
LOC: EDSTATUS 11:41 → LAB RH 12:37 → LAB UVN 12:37
PROVIDERS: Family Medicine
DX: E86.0 Dehydration (principal); N18.2 Chronic kidney disease, stage 2 (mild); G93.41 Metabolic encephalopathy
CPT/HCPCS: 80053

== ENCOUNTER → 2019-06-25 | Outpatient (CLI) | payer MEDICARE, OTHER ==
[2019-06-25 13:19] LABS: Source, Urine Clean Catch
[2019-06-25 13:25] LABS: Bilirubin, Urine Neg (Neg); Blood, Urine 5+ (Neg); Glucose Qualitative, Urine Neg (Neg); Ketones, Urine 1+ (Neg); Leukocyte Esterase, Urine 3+ (Neg); Nitrite, Urine Neg (Neg); Protein, Urine 3+ (Neg); Urobilinogen, Urine NORM (Normal)
[2019-06-25 13:31] LABS: Color, Urine Yellow (P-Yellow)
[2019-06-25 13:32] LABS: Appearance, Urine Turbid (Clear)
[2019-06-25 13:33] LABS: Bacteria Many /hpf; Red Blood Cells, Urine TNTC /hpf (0-2); Squamous Epithelial Cells Few /hpf (Few); Triple Phosphate Crystals Few /hpf; White Blood Cells, Urine TNTC /hpf (0-5)
== END | disposition home or self-care (01) ==
LOC: EDSTATUS 11:42 → LAB RH 13:15
PROVIDERS: Family Medicine
DX: N39.0 Urinary tract infection, site not specified (principal)
CPT/HCPCS: 81001; 87077; 87086; 87186

== ENCOUNTER → 2019-07-04 | Outpatient (CLI) | payer MEDICARE, OTHER ==
[~2019-07-04] MED LIST changes: +MIRALAX17 GM PO
[2019-07-04 12:14] LABS: BASOPHILS ABSOLUTE AUTO 0.04 K/mm3 (0.00-0.23); BASOPHILS PERCENT AUTO 1 % (0-2); EOSINOPHILS ABSOLUTE AUTO 0.35 K/mm3 (0.00-0.68); EOSINOPHILS PERCENT AUTO 4 % (0-6); Hematocrit 35.1 % (33.0-51.0); Hemoglobin 11.2 g/dL (11.5-16.0); IMMATURE GRAN ABSOLUTE AUTO 0.12 K/mm3 (0.00-0.10); IMMATURE GRAN PERCENT AUTO 1 % (0-1); LYMPHOCYTES ABSOLUTE AUTO 1.29 K/mm3 (0.84-5.20); LYMPHOCYTES PERCENT AUTO 15 % (21-46); MONOCYTES ABSOLUTE AUTO 0.49 K/mm3 (0.16-1.47); MONOCYTES PERCENT AUTO 6 % (4-13); Mean Corpuscular HGB 30.1 pg (26.0-34.0); Mean Corpuscular HGB Conc 31.9 g/dL (31.5-36.5); Mean Corpuscular Volume 94 fL (80-100); Mean Platelet Volume 10.3 fL (9.1-12.4); NEUTROPHILS ABSOLUTE AUTO 6.34 K/mm3 (1.96-9.15); NEUTROPHILS PERCENT AUTO 73 % (41-73); Platelet Count 446 K/mm3 (150-400); RDW Coefficient Variation 17.5 % (11.7-14.2); RDW Standard Deviation 60.1 fL (35.1-46.3); Red Blood Cell Count 3.72 M/mm3 (3.80-5.20); White Blood Cell Count 8.63 K/mm3 (4.00-11.30)
[2019-07-04 12:58] LABS: Alanine Aminotransfer (ALT/SGP 34 U/L (12-78); Albumin, Blood 2.4 g/dL (3.4-5.0); Albumin/Globulin Ratio 0.6 (0.8-1.8); Alk Phos 97 U/L (50-136); Anion Gap 3 mmol/L (6-16); Aspartate Aminotrans (AST/SGOT 40 U/L (12-37); Bilirubin, Total 0.4 mg/dL (0.1-1.0); Blood Urea Nitrogen 7 mg/dL (8-24); Bun/Creatinine Ratio 15.3 (12.0-20.0); CO2, Blood 31 mmol/L (21-32); Calcium, Blood 8.9 mg/dL (8.5-10.1); Chloride, Blood 104 mmol/L (98-108); Creatinine, Blood 0.46 mg/dL (0.40-1.00); Globulin, Blood 4.1 g/dL (2.2-4.0); Glomerular Filtration Rate >60 (60-); Glucose, Blood 104 mg/dL (70-99); Potassium, Blood 4.1 mmol/L (3.5-5.5); Sodium, Blood 138 mmol/L (136-145); Total Protein, Blood 6.5 g/dL (6.4-8.2)
== END | disposition home or self-care (01) ==
LOC: LAB RH 11:13 → EDSTATUS 11:44
PROVIDERS: Family Medicine
DX: N18.2 Chronic kidney disease, stage 2 (mild) (principal); N39.0 Urinary tract infection, site not specified
CPT/HCPCS: 80053; 85025; 85651; 86141

== ENCOUNTER → 2019-07-11 | Outpatient (CLI) | payer MEDICARE, OTHER ==
[2019-07-11 21:09] LABS: Hematocrit 33.4 % (33.0-51.0); Hemoglobin 10.4 g/dL (11.5-16.0); Mean Corpuscular HGB 30.1 pg (26.0-34.0); Mean Corpuscular HGB Conc 31.1 g/dL (31.5-36.5); Mean Platelet Volume 9.3 fL (9.1-12.4); Platelet Count 343 K/mm3 (150-400); RDW Coefficient Variation 17.2 % (11.7-14.2); RDW Standard Deviation 60.6 fL (35.1-46.3); Red Blood Cell Count 3.46 M/mm3 (3.80-5.20); White Blood Cell Count 5.14 K/mm3 (4.00-11.30)
[2019-07-11 21:10] LABS: Mean Corpuscular Volume 97 fL (80-100)
[2019-07-11 21:31] LABS: Alanine Aminotransfer (ALT/SGP 19 U/L (12-78); Albumin, Blood 2.1 g/dL (3.4-5.0); Albumin/Globulin Ratio 0.5 (0.8-1.8); Alk Phos 80 U/L (50-136); Anion Gap 4 mmol/L (6-16); Aspartate Aminotrans (AST/SGOT 18 U/L (12-37); Bilirubin, Total 0.2 mg/dL (0.1-1.0); Blood Urea Nitrogen 9 mg/dL (8-24); Bun/Creatinine Ratio 16.4 (12.0-20.0); CO2, Blood 31 mmol/L (21-32); Calcium, Blood 8.6 mg/dL (8.5-10.1); Chloride, Blood 105 mmol/L (98-108); Creatinine, Blood 0.55 mg/dL (0.40-1.00); Globulin, Blood 4.2 g/dL (2.2-4.0); Glomerular Filtration Rate >60 (60-); Glucose, Blood 92 mg/dL (70-99); Sodium, Blood 140 mmol/L (136-145); Total Protein, Blood 6.3 g/dL (6.4-8.2)
== END | disposition home or self-care (01) ==
LOC: EDSTATUS 12:50 → LAB RH 20:40
PROVIDERS: Family Medicine
DX: B95.62 Methicillin resistant Staphylococcus aureus infection as the cause of diseases classified elsewhere (principal)
CPT/HCPCS: 80053; 85027; 85651; 86140

== ENCOUNTER → 2019-07-14 | Outpatient (CLI) | payer MEDICARE, OTHER ==
[2019-07-14 05:21] LABS: Bilirubin, Urine Neg (Neg); Blood, Urine 5+ (Neg); Glucose Qualitative, Urine Neg (Neg); Ketones, Urine Neg (Neg); Leukocyte Esterase, Urine 3+ (Neg); Nitrite, Urine Pos (Neg); Protein, Urine 3+ (Neg); Specific Gravity, Urine 1.015 (1.003-1.022); Urobilinogen, Urine NORM (Normal)
[2019-07-14 05:22] LABS: Appearance, Urine Hazy (Clear); Color, Urine Yellow (P-Yellow)
[2019-07-14 05:32] LABS: Bacteria Many /hpf; Calcium Oxalate Crystals Mod /hpf; Squamous Epithelial Cells Not Seen /hpf (Few); White Blood Cells, Urine TNTC /hpf (0-5)
== END | disposition home or self-care (01) ==
LOC: LAB RH 05:10 → EDSTATUS 13:00
PROVIDERS: Family Medicine
DX: N39.0 Urinary tract infection, site not specified (principal)
CPT/HCPCS: 81001; 87077; 87086; 87186

== ENCOUNTER → 2019-07-18 | Outpatient (CLI) | payer MEDICARE, OTHER ==
[2019-07-18 17:27] LABS: Hematocrit 36.2 % (33.0-51.0); Hemoglobin 11.1 g/dL (11.5-16.0); Mean Corpuscular HGB 29.8 pg (26.0-34.0); Mean Corpuscular HGB Conc 30.7 g/dL (31.5-36.5); Mean Corpuscular Volume 97 fL (80-100); Mean Platelet Volume 10.2 fL (9.1-12.4); Platelet Count 314 K/mm3 (150-400); RDW Coefficient Variation 16.4 % (11.7-14.2); RDW Standard Deviation 59.1 fL (35.1-46.3); Red Blood Cell Count 3.73 M/mm3 (3.80-5.20); White Blood Cell Count 5.84 K/mm3 (4.00-11.30)
[2019-07-18 18:07] LABS: Alanine Aminotransfer (ALT/SGP 17 U/L (12-78); Albumin, Blood 2.4 g/dL (3.4-5.0); Albumin/Globulin Ratio 0.5 (0.8-1.8); Alk Phos 79 U/L (50-136); Anion Gap 0 mmol/L (6-16); Aspartate Aminotrans (AST/SGOT 18 U/L (12-37); Bilirubin, Total 0.2 mg/dL (0.1-1.0); Blood Urea Nitrogen 11 mg/dL (8-24); CO2, Blood 35 mmol/L (21-32); Calcium, Blood 9.7 mg/dL (8.5-10.1); Chloride, Blood 104 mmol/L (98-108); Creatinine, Blood 0.65 mg/dL (0.40-1.00); Globulin, Blood 4.6 g/dL (2.2-4.0); Glomerular Filtration Rate >60 (60-); Glucose, Blood 90 mg/dL (70-99); Potassium, Blood 4.4 mmol/L (3.5-5.5); Sodium, Blood 139 mmol/L (136-145)
== END | disposition home or self-care (01) ==
LOC: EDSTATUS 09:56 → LAB SHORT 16:30 → LAB RH 16:30
PROVIDERS: Family Medicine
DX: N18.2 Chronic kidney disease, stage 2 (mild) (principal); Z16.20 Resistance to unspecified antibiotic
CPT/HCPCS: 80053; 85027; 85651; 86140

== ENCOUNTER → 2019-07-25 | Outpatient (CLI) | payer MEDICARE, OTHER ==
[2019-07-25 13:15] LABS: Hematocrit 40.4 % (33.0-51.0); Hemoglobin 12.3 g/dL (11.5-16.0); Mean Corpuscular HGB 29.8 pg (26.0-34.0); Mean Corpuscular HGB Conc 30.4 g/dL (31.5-36.5); Mean Corpuscular Volume 98 fL (80-100); Mean Platelet Volume 9.2 fL (9.1-12.4); Platelet Count 353 K/mm3 (150-400); RDW Coefficient Variation 16.1 % (11.7-14.2); RDW Standard Deviation 58.4 fL (35.1-46.3); Red Blood Cell Count 4.13 M/mm3 (3.80-5.20); White Blood Cell Count 6.59 K/mm3 (4.00-11.30)
[2019-07-25 13:32] LABS: Alanine Aminotransfer (ALT/SGP 16 U/L (12-78); Albumin, Blood 2.6 g/dL (3.4-5.0); Albumin/Globulin Ratio 0.5 (0.8-1.8); Alk Phos 88 U/L (50-136); Anion Gap 3 mmol/L (6-16); Aspartate Aminotrans (AST/SGOT 17 U/L (12-37); Bilirubin, Total 0.2 mg/dL (0.1-1.0); Blood Urea Nitrogen 16 mg/dL (8-24); Bun/Creatinine Ratio 23.3 (12.0-20.0); CO2, Blood 33 mmol/L (21-32); Calcium, Blood 9.3 mg/dL (8.5-10.1); Chloride, Blood 104 mmol/L (98-108); Creatinine, Blood 0.69 mg/dL (0.40-1.00); Globulin, Blood 4.8 g/dL (2.2-4.0); Glomerular Filtration Rate >60 (60-); Glucose, Blood 87 mg/dL (70-99); Potassium, Blood 4.1 mmol/L (3.5-5.5); Sodium, Blood 140 mmol/L (136-145); Total Protein, Blood 7.4 g/dL (6.4-8.2)
== END | disposition home or self-care (01) ==
LOC: EDSTATUS 10:00 → LAB RH 12:00
PROVIDERS: Family Medicine
DX: N18.2 Chronic kidney disease, stage 2 (mild) (principal); Z16.12 Extended spectrum beta lactamase (ESBL) resistance
CPT/HCPCS: 80053; 85027; 85651; 86140

== ENCOUNTER → 2019-08-01 | Outpatient (CLI) | payer MEDICARE, OTHER ==
[2019-08-01 16:42] LABS: Hematocrit 42.4 % (33.0-51.0); Mean Corpuscular HGB Conc 30.7 g/dL (31.5-36.5); Mean Corpuscular Volume 98 fL (80-100); Mean Platelet Volume 10.6 fL (9.1-12.4); Platelet Count 395 K/mm3 (150-400); RDW Coefficient Variation 15.9 % (11.7-14.2); RDW Standard Deviation 57.7 fL (35.1-46.3); Red Blood Cell Count 4.34 M/mm3 (3.80-5.20); White Blood Cell Count 8.56 K/mm3 (4.00-11.30)
== END | disposition home or self-care (01) ==
LOC: EDSTATUS 09:50 → LAB RH 16:08
PROVIDERS: Family Medicine
DX: A41.89 Other specified sepsis (principal)
CPT/HCPCS: 85027; 85651; 86140

== ENCOUNTER → 2019-09-20 | Outpatient (CLI) | payer MEDICARE, OTHER ==
[2019-09-20 10:28] LABS: Albumin, Blood 2.5 g/dL (3.4-5.0); Anion Gap 2 mmol/L (6-16); Blood Urea Nitrogen 15 mg/dL (8-24); Bun/Creatinine Ratio 20.9 (12.0-20.0); CO2, Blood 34 mmol/L (21-32); Calcium, Blood 9.1 mg/dL (8.5-10.1); Chloride, Blood 108 mmol/L (98-108); Creatinine, Blood 0.72 mg/dL (0.40-1.00); Glomerular Filtration Rate >60 (60-); Glucose, Blood 81 mg/dL (70-99); Potassium, Blood 4.6 mmol/L (3.5-5.5); Sodium, Blood 144 mmol/L (136-145)
== END | disposition home or self-care (01) ==
LOC: LAB RH 07:45 → EDSTATUS 15:17
PROVIDERS: Internal Medicine Nephrology
DX: N18.2 Chronic kidney disease, stage 2 (mild) (principal); D63.1 Anemia in chronic kidney disease; R76.9 Abnormal immunological finding in serum, unspecified; R94.6 Abnormal results of thyroid function studies
CPT/HCPCS: 80069; 82533; 84443; 85018

== ENCOUNTER → 2019-12-04 | Outpatient (CLI) | payer MEDICARE, OTHER ==
[2019-12-04 13:51] LABS: Hematocrit 38.4 % (33.0-51.0); Hemoglobin 11.9 g/dL (11.5-16.0)
[2019-12-04 14:12] LABS: Albumin, Blood 2.8 g/dL (3.4-5.0); Anion Gap 3 mmol/L (6-16); Blood Urea Nitrogen 22 mg/dL (8-24); Bun/Creatinine Ratio 37.4 (12.0-20.0); CO2, Blood 31 mmol/L (21-32); Calcium, Blood 8.5 mg/dL (8.5-10.1); Chloride, Blood 107 mmol/L (98-108); Creatinine, Blood 0.59 mg/dL (0.40-1.00); Glomerular Filtration Rate >60 (60-); Glucose, Blood 119 mg/dL (70-99); Phosphorus, Blood 3.3 mg/dL (2.5-4.9); Potassium, Blood 3.7 mmol/L (3.5-5.5); Sodium, Blood 141 mmol/L (136-145)
== END | disposition home or self-care (01) ==
LOC: LAB SHORT 11:50 → LAB 11:50
PROVIDERS: Internal Medicine Nephrology
DX: N18.30 Chronic kidney disease, stage 3 unspecified (principal); D63.1 Anemia in chronic kidney disease
CPT/HCPCS: 80069; 85014; 85018

== ENCOUNTER 2020-02-19 00:07 | Day surgery (SDC) | payer MEDICARE, OTHER ==
[2020-02-19] MEDS ORDERED: CENTRUM SILVER1 EAC2 PO (12:19)
[2020-02-19] MEDS ORDERED: Citalopram HBr20 MG PO (12:22)
[2020-02-19] MEDS ORDERED: Adult Glycerin1 EACH PR (12:24)
[2020-02-19] MEDS ORDERED: Norco 7.5-3251 EACH PO (12:25)
--- NOTE | 2020-02-19 12:30 | NUR ---
[facility]S OUT OF PT'S IV CATHETER AT ALL DRAW TIMES. PT TOLERATED THIS PROCEDURE WELL.
== END 2020-02-19 10:39 | disposition home or self-care (01) ==
LOC: ATC 00:07
DX: E27.40 Unspecified adrenocortical insufficiency (principal); I12.9 Hypertensive chronic kidney disease with stage 1 through stage 4 chronic kidney disease, or unspecified chronic kidney disease; N18.2 Chronic kidney disease, stage 2 (mild); I25.9 Chronic ischemic heart disease, unspecified; M81.0 Age-related osteoporosis without current pathological fracture; N25.81 Secondary hyperparathyroidism of renal origin
CPT/HCPCS: 36415; 80400; 82533; 96372; J0834

== ENCOUNTER → 2020-03-31 | Outpatient (CLI) | payer MEDICARE, OTHER ==
[~2020-03-31] MED LIST changes: +Adult Glycerin1 EACH PR; +Citalopram HBr20 MG PO; +Norco 7.5-3251 EACH PO
[2020-03-31 10:48] LABS: Albumin, Blood 2.7 g/dL (3.4-5.0); Anion Gap 5 mmol/L (6-16); Blood Urea Nitrogen 17 mg/dL (8-24); Bun/Creatinine Ratio 30.7 (12.0-20.0); CO2, Blood 29 mmol/L (21-32); Calcium, Blood 8.3 mg/dL (8.5-10.1); Chloride, Blood 107 mmol/L (98-108); Creatinine, Blood 0.55 mg/dL (0.40-1.00); Glomerular Filtration Rate >60 (60-); Glucose, Blood 81 mg/dL (70-99); Phosphorus, Blood 3.5 mg/dL (2.5-4.9); Potassium, Blood 4.1 mmol/L (3.5-5.5); Sodium, Blood 141 mmol/L (136-145)
== END | disposition home or self-care (01) ==
LOC: EDSTATUS 07:38 → LAB RH 07:45 → EDSTATUS 11:08
PROVIDERS: Family Medicine
DX: N18.2 Chronic kidney disease, stage 2 (mild) (principal)
CPT/HCPCS: 80069; 85018

== ENCOUNTER → 2020-06-29 | Outpatient (CLI) | payer MEDICARE, OTHER ==
[2020-06-29 12:46] LABS: Albumin, Blood 3.1 g/dL (3.4-5.0); Anion Gap 2 mmol/L (6-16); Blood Urea Nitrogen 16 mg/dL (8-24); CO2, Blood 33 mmol/L (21-32); Calcium, Blood 8.9 mg/dL (8.5-10.1); Chloride, Blood 106 mmol/L (98-108); Creatinine, Blood 0.67 mg/dL (0.40-1.00); Glomerular Filtration Rate >60 (60-); Glucose, Blood 90 mg/dL (70-99); Phosphorus, Blood 2.8 mg/dL (2.5-4.9); Potassium, Blood 3.6 mmol/L (3.5-5.5); Sodium, Blood 141 mmol/L (136-145)
== END | disposition home or self-care (01) ==
LOC: LAB RH 11:29 → EDSTATUS 13:12
PROVIDERS: Internal Medicine Nephrology
DX: N18.30 Chronic kidney disease, stage 3 unspecified (principal); D63.1 Anemia in chronic kidney disease
CPT/HCPCS: 80069; 85018

== ENCOUNTER → 2020-10-02 | Outpatient (CLI) | payer MEDICARE, OTHER ==
[2020-10-02 15:26] LABS: Appearance, Urine Cloudy (Clear); Bilirubin, Urine Neg (Neg); Blood, Urine 4+ (Neg); Color, Urine Yellow (P-Yellow); Glucose Qualitative, Urine Neg (Neg); Ketones, Urine 2+ (Neg); Leukocyte Esterase, Urine 2+ (Neg); Nitrite, Urine Pos (Neg); Protein, Urine 2+ (Neg); Urobilinogen, Urine NORM (Normal)
[2020-10-02 15:34] LABS: Hyaline Casts 0-2 /lpf (0-2)
[2020-10-02 15:44] LABS: Bacteria Many /hpf; Squamous Epithelial Cells Many /hpf (Few)
[2020-10-02 16:45] LABS: Hematocrit 48.8 % (33.0-51.0); Hemoglobin 15.6 g/dL (11.5-16.0); Mean Corpuscular Volume 97 fL (80-100); Platelet Count 140 K/mm3 (150-400); RDW Coefficient Variation 13.5 % (11.7-14.2); RDW Standard Deviation 49.4 fL (35.1-46.3); Red Blood Cell Count 5.04 M/mm3 (3.80-5.20); White Blood Cell Count 4.63 K/mm3 (4.00-11.30)
[2020-10-02 17:01] LABS: Albumin, Blood 2.8 g/dL (3.4-5.0); Albumin/Globulin Ratio 0.6 (0.8-1.8); Bilirubin, Total 0.3 mg/dL (0.1-1.0); Bun/Creatinine Ratio 47.2 (12.0-20.0); Calcium, Blood 9.4 mg/dL (8.5-10.1); Creatinine, Blood 1.06 mg/dL (0.40-1.00); Globulin, Blood 4.4 g/dL (2.2-4.0); Potassium, Blood 4.1 mmol/L (3.5-5.5); Total Protein, Blood 7.2 g/dL (6.4-8.2)
== END | disposition home or self-care (01) ==
LOC: EDSTATUS 07:37 → LAB RH 15:21
PROVIDERS: Internal Medicine
DX: I12.9 Hypertensive chronic kidney disease with stage 1 through stage 4 chronic kidney disease, or unspecified chronic kidney disease (principal); N18.2 Chronic kidney disease, stage 2 (mild); D63.1 Anemia in chronic kidney disease; N39.0 Urinary tract infection, site not specified; E86.0 Dehydration
CPT/HCPCS: 80053; 81001; 85027; 87077; 87086; 87186

== ENCOUNTER → 2020-11-23 | Outpatient (CLI) | payer MEDICARE, OTHER ==
[~2020-11-23] MED LIST changes: +Ceftriaxone250 MG IV; +LEVOFLOXACIN750 MG PO; +ONDA4 PO
[2020-11-23 17:35] LABS: Anion Gap 4 mmol/L (6-16); Blood Urea Nitrogen 17 mg/dL (8-24); Bun/Creatinine Ratio 20.3 (12.0-20.0); CO2, Blood 33 mmol/L (21-32); Calcium, Blood 9.7 mg/dL (8.5-10.1); Chloride, Blood 103 mmol/L (98-108); Creatinine, Blood 0.84 mg/dL (0.40-1.00); Glomerular Filtration Rate >60 (60-); Glucose, Blood 117 mg/dL (70-99); Hematocrit 43.9 % (33.0-51.0); Hemoglobin 14.3 g/dL (11.5-16.0); Mean Corpuscular HGB 31.3 pg (26.0-34.0); Mean Corpuscular HGB Conc 32.6 g/dL (31.5-36.5); Mean Corpuscular Volume 96 fL (80-100); Mean Platelet Volume 9.9 fL (9.1-12.4); Platelet Count 252 K/mm3 (150-400); RDW Coefficient Variation 14.8 % (11.7-14.2); RDW Standard Deviation 52.2 fL (35.1-46.3); Red Blood Cell Count 4.57 M/mm3 (3.80-5.20); Sodium, Blood 140 mmol/L (136-145); White Blood Cell Count 11.43 K/mm3 (4.00-11.30)
== END | disposition home or self-care (01) ==
LOC: EDSTATUS 09:59 → LAB RH 16:07
PROVIDERS: Internal Medicine
DX: K59.00 Constipation, unspecified (principal); E86.0 Dehydration; I10 Essential (primary) hypertension
CPT/HCPCS: 80048; 85027

== ENCOUNTER 2020-11-28 06:10 | Inpatient (IN) | payer MEDICARE, OTHER ==
[~2020-11-28] VITALS: Ht 152.4 cm; Wt 51.2 kg
[~2020-11-28 06:10] MED LIST changes: -Ceftriaxone250 MG IV; -LEVOFLOXACIN750 MG PO; -ONDA4 PO
[2020-11-28 06:43] LABS: Hematocrit 39.7 % (33.0-51.0); Hemoglobin 12.5 g/dL (11.5-16.0); Mean Corpuscular HGB 31.1 pg (26.0-34.0); Mean Corpuscular HGB Conc 31.5 g/dL (31.5-36.5); Mean Corpuscular Volume 99 fL (80-100); Mean Platelet Volume 9.2 fL (9.1-12.4); Platelet Count 169 K/mm3 (150-400); RDW Coefficient Variation 15.9 % (11.7-14.2); RDW Standard Deviation 57.6 fL (35.1-46.3); Red Blood Cell Count 4.02 M/mm3 (3.80-5.20); White Blood Cell Count 6.87 K/mm3 (4.00-11.30)
[2020-11-28 06:57] LABS: Base Excess Venous 2.5 mmol/L; Bicarbonate Venous 26.1 mmol/L (24.0-30.0); PCO2 Venous 44.2 mmHg (38-42); PO2 Venous 122 mmHg (38-42)
[2020-11-28 07:00] LABS: Source, Urine Catheter
[2020-11-28 07:01] LABS: Albumin, Blood 1.7 g/dL (3.4-5.0); Albumin/Globulin Ratio 0.4 (0.8-1.8); Bilirubin, Total 1.5 mg/dL (0.1-1.0); Bun/Creatinine Ratio 23.7 (12.0-20.0); Calcium, Blood 9.5 mg/dL (8.5-10.1); Creatinine, Blood 1.39 mg/dL (0.40-1.00); Globulin, Blood 4.7 g/dL (2.2-4.0); Potassium, Blood 3.2 mmol/L (3.5-5.5); Total Protein, Blood 6.4 g/dL (6.4-8.2)
[2020-11-28 07:12] LABS: Appearance, Urine Turbid (Clear); Bilirubin, Urine Neg (Neg); Blood, Urine 5+ (Neg); Color, Urine Brown (P-Yellow); Glucose Qualitative, Urine Neg (Neg); Ketones, Urine 2+ (Neg); Leukocyte Esterase, Urine 3+ (Neg); Nitrite, Urine Neg (Neg); Protein, Urine 3+ (Neg); Urobilinogen, Urine NORM (Normal)
[2020-11-28 07:26] LABS: BAND PERCENT MAN 1 % (0-8); BASOPHILS PERCENT MAN 0 % (0-2); EOSINOPHILS PERCENT MAN 0 % (0-6); LYMPHOCYTES ABSOLUTE MAN 1.09 K/mm3 (0.84-5.20); LYMPHOCYTES PERCENT MAN 16 % (21-46); METAMYELOCYTE ABSOLUTE MAN 0.13 K/mm3 (0.00-0.00); METAMYELOCYTE PERCENT MAN 2 % (0-0); MONOCYTES ABSOLUTE MAN 0.13 K/mm3 (0.16-1.47); MONOCYTES PERCENT MAN 2 % (4-13); MYELOCYTE ABSOLUTE MAN 0.68 K/mm3 (0.00-0.00); MYELOCYTE PERCENT MAN 10 % (0-0); PLASMA CELLS PERCENT MAN 3 % (0-0); SEG NEUTROPHILS PERCENT MAN 66 % (41-73); TOTAL CELLS COUNTED 100
[2020-11-28 07:46] LABS: Bacteria Mod /hpf; Red Blood Cells, Urine 25-50 /hpf (0-2); Squamous Epithelial Cells Not Seen /hpf (Few); White Blood Cells, Urine TNTC /hpf (0-5)
[2020-11-28 08:28] LABS: SARS-Cov-2 (COVID-19) PCR, MMC POSITIVE (NEGATIVE)
[2020-11-28] MEDS ORDERED: LEVOFLOXACIN750 MG PO (09:26)
[2020-11-28] MEDS ORDERED: ONDA4 PO (09:28)
[2020-11-28] MEDS ORDERED: Ceftriaxone250 MG IV (09:29)
[2020-11-28 20:53] LABS: Hematocrit 34.1 % (33.0-51.0); Hemoglobin 10.6 g/dL (11.5-16.0); Mean Corpuscular HGB 31.5 pg (26.0-34.0); Mean Corpuscular HGB Conc 31.1 g/dL (31.5-36.5); Mean Corpuscular Volume 101 fL (80-100); Mean Platelet Volume 10.4 fL (9.1-12.4); Platelet Count 155 K/mm3 (150-400); RDW Coefficient Variation 16.5 % (11.7-14.2); RDW Standard Deviation 61.9 fL (35.1-46.3); Red Blood Cell Count 3.37 M/mm3 (3.80-5.20); White Blood Cell Count 21.31 K/mm3 (4.00-11.30)
[2020-11-28 21:25] LABS: BAND PERCENT MAN 16 % (0-8); BASOPHILS ABSOLUTE MAN 0.21 K/mm3 (0.00-0.23); BASOPHILS PERCENT MAN 1 % (0-2); EOSINOPHILS PERCENT MAN 0 % (0-6); LYMPHOCYTES ABSOLUTE MAN 0.21 K/mm3 (0.84-5.20); LYMPHOCYTES PERCENT MAN 1 % (21-46); METAMYELOCYTE ABSOLUTE MAN 3.19 K/mm3 (0.00-0.00); METAMYELOCYTE PERCENT MAN 15 % (0-0); MONOCYTES ABSOLUTE MAN 1.27 K/mm3 (0.16-1.47); MONOCYTES PERCENT MAN 6 % (4-13); MYELOCYTE ABSOLUTE MAN 1.91 K/mm3 (0.00-0.00); MYELOCYTE PERCENT MAN 9 % (0-0); NEUTROPHILS ABSOLUTE MAN 14.06 K/mm3 (1.96-9.15); PLASMA CELL ABSOLUTE MAN 0.42 K/mm3 (0.00-0.00); PLASMA CELLS PERCENT MAN 2 % (0-0); SEG NEUTROPHILS PERCENT MAN 50 % (41-73); TOTAL CELLS COUNTED 100
[2020-11-28 21:44] LABS: Albumin, Blood 1.3 g/dL (3.4-5.0); Anion Gap 8 mmol/L (6-16); Blood Urea Nitrogen 29 mg/dL (8-24); CO2, Blood 23 mmol/L (21-32); Chloride, Blood 122 mmol/L (98-108); Creatinine, Blood 1.26 mg/dL (0.40-1.00); Glomerular Filtration Rate 41 (60-); Glucose, Blood 120 mg/dL (70-99); Phosphorus, Blood 2.4 mg/dL (2.5-4.9); Potassium, Blood 3.3 mmol/L (3.5-5.5); Sodium, Blood 153 mmol/L (136-145)
[2020-11-28 21:45] LABS: Calcium, Blood 7.2 mg/dL (8.5-10.1)
[2020-11-29 03:54] LABS: Hematocrit 31.2 % (33.0-51.0); Hemoglobin 9.8 g/dL (11.5-16.0); Mean Corpuscular HGB 31.2 pg (26.0-34.0); Mean Corpuscular HGB Conc 31.4 g/dL (31.5-36.5); Mean Corpuscular Volume 99 fL (80-100); Mean Platelet Volume 9.7 fL (9.1-12.4); Platelet Count 139 K/mm3 (150-400); RDW Coefficient Variation 16.8 % (11.7-14.2); RDW Standard Deviation 60.9 fL (35.1-46.3); Red Blood Cell Count 3.14 M/mm3 (3.80-5.20); White Blood Cell Count 23.79 K/mm3 (4.00-11.30)
[2020-11-29] MEDS ORDERED: ARTIFICIAL TEAR15 M2 BOTHEYES (04:01)
[2020-11-29 04:17] LABS: Bun/Creatinine Ratio 24.8 (12.0-20.0); Calcium, Blood 7.3 mg/dL (8.5-10.1); Creatinine, Blood 1.13 mg/dL (0.40-1.00)
[2020-11-29 04:26] LABS: BAND PERCENT MAN 36 % (0-8); BASOPHILS PERCENT MAN 0 % (0-2); EOSINOPHILS PERCENT MAN 0 % (0-6); LYMPHOCYTES ABSOLUTE MAN 0.47 K/mm3 (0.84-5.20); LYMPHOCYTES PERCENT MAN 2 % (21-46); METAMYELOCYTE ABSOLUTE MAN 0.23 K/mm3 (0.00-0.00); METAMYELOCYTE PERCENT MAN 1 % (0-0); MONOCYTES PERCENT MAN 0 % (4-13); MYELOCYTE ABSOLUTE MAN 0.71 K/mm3 (0.00-0.00); MYELOCYTE PERCENT MAN 3 % (0-0); NEUTROPHILS ABSOLUTE MAN 22.36 K/mm3 (1.96-9.15); SEG NEUTROPHILS PERCENT MAN 58 % (41-73); TOTAL CELLS COUNTED 100
[2020-11-29 21:04] LABS: Vancomycin, Random 11.9 ug/mL
[2020-11-30 04:31] LABS: Hematocrit 33.9 % (33.0-51.0); Mean Corpuscular HGB 31.3 pg (26.0-34.0); Mean Corpuscular HGB Conc 32.4 g/dL (31.5-36.5); Mean Corpuscular Volume 97 fL (80-100); Platelet Count 141 K/mm3 (150-400); RDW Coefficient Variation 16.8 % (11.7-14.2); RDW Standard Deviation 59.5 fL (35.1-46.3); Red Blood Cell Count 3.51 M/mm3 (3.80-5.20); White Blood Cell Count 34.25 K/mm3 (4.00-11.30)
[2020-11-30 04:55] LABS: Alanine Aminotransfer (ALT/SGP 12 U/L (12-78); Albumin, Blood 1.1 g/dL (3.4-5.0); Albumin/Globulin Ratio 0.3 (0.8-1.8); Alk Phos 98 U/L (50-136); Anion Gap 6 mmol/L (6-16); Aspartate Aminotrans (AST/SGOT 14 U/L (12-37); Bilirubin, Total 0.3 mg/dL (0.1-1.0); Blood Urea Nitrogen 20 mg/dL (8-24); Bun/Creatinine Ratio 23.6 (12.0-20.0); CO2, Blood 24 mmol/L (21-32); Calcium, Blood 7.9 mg/dL (8.5-10.1); Chloride, Blood 112 mmol/L (98-108); Creatinine, Blood 0.85 mg/dL (0.40-1.00); Globulin, Blood 3.9 g/dL (2.2-4.0); Glomerular Filtration Rate >60 (60-); Glucose, Blood 112 mg/dL (70-99); Potassium, Blood 3.1 mmol/L (3.5-5.5); Sodium, Blood 142 mmol/L (136-145)
[2020-11-30 04:56] LABS: BAND PERCENT MAN 31 % (0-8); BASOPHILS PERCENT MAN 0 % (0-2); EOSINOPHILS ABSOLUTE MAN 0.34 K/mm3 (0.00-0.68); EOSINOPHILS PERCENT MAN 1 % (0-6); LYMPHOCYTES ABSOLUTE MAN 1.37 K/mm3 (0.84-5.20); LYMPHOCYTES PERCENT MAN 4 % (21-46); MONOCYTES ABSOLUTE MAN 0.34 K/mm3 (0.16-1.47); MONOCYTES PERCENT MAN 1 % (4-13); NEUTROPHILS ABSOLUTE MAN 32.19 K/mm3 (1.96-9.15); SEG NEUTROPHILS PERCENT MAN 63 % (41-73); TOTAL CELLS COUNTED 100
[2020-12-01 11:05] LABS: Albumin, Blood 1.1 g/dL (3.4-5.0); Anion Gap 4 mmol/L (6-16); Blood Urea Nitrogen 9 mg/dL (8-24); Bun/Creatinine Ratio 13.6 (12.0-20.0); CO2, Blood 29 mmol/L (21-32); Calcium, Blood 7.5 mg/dL (8.5-10.1); Chloride, Blood 111 mmol/L (98-108); Creatinine, Blood 0.66 mg/dL (0.40-1.00); Glomerular Filtration Rate >60 (60-); Glucose, Blood 112 mg/dL (70-99); Phosphorus, Blood 1.5 mg/dL (2.5-4.9); Potassium, Blood 2.7 mmol/L (3.5-5.5); Sodium, Blood 144 mmol/L (136-145)
[2020-12-02 03:27] LABS: BASOPHILS ABSOLUTE AUTO 0.05 K/mm3 (0.00-0.23); BASOPHILS PERCENT AUTO 0 % (0-2); EOSINOPHILS ABSOLUTE AUTO 0.39 K/mm3 (0.00-0.68); EOSINOPHILS PERCENT AUTO 3 % (0-6); Hematocrit 33.2 % (33.0-51.0); Hemoglobin 11.3 g/dL (11.5-16.0); IMMATURE GRAN ABSOLUTE AUTO 0.18 K/mm3 (0.00-0.10); IMMATURE GRAN PERCENT AUTO 2 % (0-1); LYMPHOCYTES PERCENT AUTO 14 % (21-46); MONOCYTES PERCENT AUTO 6 % (4-13); Mean Corpuscular HGB 31.8 pg (26.0-34.0); Mean Corpuscular Volume 94 fL (80-100); NEUTROPHILS ABSOLUTE AUTO 8.74 K/mm3 (1.96-9.15); NEUTROPHILS PERCENT AUTO 75 % (41-73); Platelet Count 128 K/mm3 (150-400); RDW Coefficient Variation 16.1 % (11.7-14.2); RDW Standard Deviation 55.3 fL (35.1-46.3); Red Blood Cell Count 3.55 M/mm3 (3.80-5.20); White Blood Cell Count 11.66 K/mm3 (4.00-11.30)
[2020-12-02 03:41] LABS: Albumin, Blood 1.1 g/dL (3.4-5.0); Anion Gap 4 mmol/L (6-16); Blood Urea Nitrogen 9 mg/dL (8-24); Bun/Creatinine Ratio 14.9 (12.0-20.0); CO2, Blood 31 mmol/L (21-32); Calcium, Blood 7.2 mg/dL (8.5-10.1); Chloride, Blood 108 mmol/L (98-108); Creatinine, Blood 0.61 mg/dL (0.40-1.00); Glomerular Filtration Rate >60 (60-); Glucose, Blood 120 mg/dL (70-99); Phosphorus, Blood 2.7 mg/dL (2.5-4.9); Potassium, Blood 4.1 mmol/L (3.5-5.5); Sodium, Blood 143 mmol/L (136-145)
[2020-12-03 05:30] LABS: Hematocrit 30.4 % (33.0-51.0); Mean Corpuscular HGB Conc 32.9 g/dL (31.5-36.5); Mean Corpuscular Volume 94 fL (80-100); Mean Platelet Volume 10.9 fL (9.1-12.4); Platelet Count 137 K/mm3 (150-400); RDW Coefficient Variation 16.5 % (11.7-14.2); RDW Standard Deviation 57.1 fL (35.1-46.3); Red Blood Cell Count 3.23 M/mm3 (3.80-5.20); White Blood Cell Count 7.66 K/mm3 (4.00-11.30)
[2020-12-03 05:51] LABS: Anion Gap 3 mmol/L (6-16); Blood Urea Nitrogen 7 mg/dL (8-24); Bun/Creatinine Ratio 13.4 (12.0-20.0); CO2, Blood 32 mmol/L (21-32); Calcium, Blood 7.3 mg/dL (8.5-10.1); Chloride, Blood 107 mmol/L (98-108); Creatinine, Blood 0.52 mg/dL (0.40-1.00); Glomerular Filtration Rate >60 (60-); Glucose, Blood 106 mg/dL (70-99); Phosphorus, Blood 1.8 mg/dL (2.5-4.9); Potassium, Blood 3.5 mmol/L (3.5-5.5); Sodium, Blood 142 mmol/L (136-145)
[2020-12-03 05:53] LABS: BAND PERCENT MAN 12 % (0-8); BASOPHILS ABSOLUTE MAN 0.07 K/mm3 (0.00-0.23); BASOPHILS PERCENT MAN 1 % (0-2); EOSINOPHILS ABSOLUTE MAN 0.45 K/mm3 (0.00-0.68); EOSINOPHILS PERCENT MAN 6 % (0-6); LYMPHOCYTES ABSOLUTE MAN 0.61 K/mm3 (0.84-5.20); LYMPHOCYTES PERCENT MAN 8 % (21-46); METAMYELOCYTE ABSOLUTE MAN 0.15 K/mm3 (0.00-0.00); METAMYELOCYTE PERCENT MAN 2 % (0-0); MONOCYTES ABSOLUTE MAN 1.14 K/mm3 (0.16-1.47); MONOCYTES PERCENT MAN 15 % (4-13); SEG NEUTROPHILS PERCENT MAN 56 % (41-73); TOTAL CELLS COUNTED 100
[2020-12-03 09:58] LABS: SARS-Cov-2 (COVID-19) PCR, MMC POSITIVE (NEGATIVE)
== END 2020-12-03 16:04 | DRG 871 ==
LOC: ER 06:10 → ICUE 09:17 → ERHOLD 09:17 → ICUE 11-29 02:08
PROVIDERS: Emergency Medicine; Internal Medicine; ADMIT Internal Medicine
PROC: 3E033XZ Introduction of Vasopressor into Peripheral Vein, Percutaneous Approach (ICD-10-PCS; principal; 2020-11-28)
PROC: 8E0ZXY6 Isolation (ICD-10-PCS; 2020-11-28)
PROC: 02HV33Z Insertion of Infusion Device into Superior Vena Cava, Percutaneous Approach (ICD-10-PCS; 2020-11-28)
DX: A41.51 Sepsis due to Escherichia coli [E. coli] (principal); U07.1 COVID-19; R65.21 Severe sepsis with septic shock; G92.8 Other toxic encephalopathy; N12 Tubulo-interstitial nephritis, not specified as acute or chronic; E87.0 Hyperosmolality and hypernatremia; E44.0 Moderate protein-calorie malnutrition; Z68.1 Body mass index [BMI] 19.9 or less, adult; N17.9 Acute kidney failure, unspecified; Z16.12 Extended spectrum beta lactamase (ESBL) resistance; Z66 Do not resuscitate; E78.5 Hyperlipidemia, unspecified; M81.0 Age-related osteoporosis without current pathological fracture; G89.29 Other chronic pain; M54.2 Cervicalgia; I12.9 Hypertensive chronic kidney disease with stage 1 through stage 4 chronic kidney disease, or unspecified chronic kidney disease; E86.0 Dehydration; N18.2 Chronic kidney disease, stage 2 (mild); M54.9 Dorsalgia, unspecified; D63.1 Anemia in chronic kidney disease; E87.6 Hypokalemia; F03.90 Unspecified dementia, unspecified severity, without behavioral disturbance, psychotic disturbance, mood disturbance, and anxiety; R62.7 Adult failure to thrive; M41.9 Scoliosis, unspecified; I89.0 Lymphedema, not elsewhere classified; Z86.718 Personal history of other venous thrombosis and embolism; Z88.6 Allergy status to analgesic agent; Z88.1 Allergy status to other antibiotic agents; Z74.01 Bed confinement status; Z98.890 Other specified postprocedural states; Z79.82 Long term (current) use of aspirin; Z79.899 Other long term (current) drug therapy; Z87.440 Personal history of urinary (tract) infections; Z87.11 Personal history of peptic ulcer disease
CPT/HCPCS: 36415; 36569; 51702; 70450; 71045; 80048; 80053; 80069; 80202; 81001; 82803; 82947; 83605; 83735; 84484; 85025; 87040; 87077; 87086; 87186; 92526; 92610; 93005; 93010; 96365; 96366; 96367; 96375; 96376; 99291-25; A9270; C1751; C1769; J1650; J2185; J3370; J3475; J3480; J7030; J7060; J7070; J7121; U0004

== ENCOUNTER 2021-08-16 00:09 | Emergency (ER) | payer MEDICARE, OTHER ==
[~2021-08-16] VITALS: Ht 162.6 cm; Wt 59.0 kg
[~2021-08-16 00:09] MED LIST changes: +Ceftriaxone250 MG IV; +LEVOFLOXACIN750 MG PO; +ONDA4 PO
[2021-08-16 03:05] LABS: LYMPHOCYTES ABSOLUTE AUTO 0.47 K/mm3 (0.84-5.20); LYMPHOCYTES PERCENT AUTO 4 % (21-46); MONOCYTES ABSOLUTE AUTO 0.92 K/mm3 (0.16-1.47); MONOCYTES PERCENT AUTO 7 % (4-13); Mean Corpuscular HGB 30.6 pg (26.0-34.0); Mean Corpuscular HGB Conc 31.9 g/dL (31.5-36.5); Mean Corpuscular Volume 96 fL (80-100); Mean Platelet Volume 9.7 fL (9.1-12.4); Platelet Count 134 K/mm3 (150-400); RDW Coefficient Variation 14.3 % (11.7-14.2); RDW Standard Deviation 51.1 fL (35.1-46.3); White Blood Cell Count 12.37 K/mm3 (4.00-11.30)
[2021-08-16 03:12] LABS: BASOPHILS ABSOLUTE AUTO 0.01 K/mm3 (0.00-0.23); BASOPHILS PERCENT AUTO 0 % (0-2); EOSINOPHILS PERCENT AUTO 0 % (0-6); IMMATURE GRAN ABSOLUTE AUTO 0.04 K/mm3 (0.00-0.10); IMMATURE GRAN PERCENT AUTO 0 % (0-1); NEUTROPHILS ABSOLUTE AUTO 10.93 K/mm3 (1.96-9.15); NEUTROPHILS PERCENT AUTO 88 % (41-73)
[2021-08-16 03:30] LABS: Albumin, Blood 2.3 g/dL (3.4-5.0); Albumin/Globulin Ratio 0.5 (0.8-1.8); Bilirubin, Total 0.6 mg/dL (0.1-1.0); Bun/Creatinine Ratio 62.1 (12.0-20.0); Calcium, Blood 9.6 mg/dL (8.5-10.1); Potassium, Blood 3.7 mmol/L (3.5-5.5); Total Protein, Blood 7.3 g/dL (6.4-8.2)
== END 2021-08-16 06:30 | disposition home or self-care (01) ==
LOC: ER 00:09
PROVIDERS: Emergency Medicine
DX: R11.2 Nausea with vomiting, unspecified (principal); E87.0 Hyperosmolality and hypernatremia; E86.0 Dehydration; Z88.0 Allergy status to penicillin; Z88.6 Allergy status to analgesic agent; Z79.899 Other long term (current) drug therapy
CPT/HCPCS: 80053; 83690; 84484; 85025; 93005; 93010; J7120